=== PATIENT | female | born 1975 | race African-American/Black ===

== ENCOUNTER 2021-07-08 19:06 | Emergency (ER) | payer SELFPAY ==
[~2021-07-08] VITALS: Ht 175.3 cm; Wt 99.0 kg
[2021-07-09] VITALS: BP 122/75
[2021-07-09] MEDS ORDERED: IBUP-2029 MT (00:07)
[2021-07-09] MEDS ORDERED: METH-653 MT (00:07)
== END 2021-07-09 01:05 | disposition home or self-care (01) ==
LOC: ER 19:06
DX: S20.211A Contusion of right front wall of thorax, initial encounter (principal); V49.49XA Driver injured in collision with other motor vehicles in traffic accident, initial encounter; Y93.89 Activity, other specified; Y92.89 Other specified places as the place of occurrence of the external cause; Y99.8 Other external cause status; Z88.0 Allergy status to penicillin
CPT/HCPCS: 71045; 93005; 99283